=== PATIENT | male | born 1970 ===

== ENCOUNTER 2018-06-07 20:05 | Emergency (ER) | payer BC ==
[2018-06-07 20:15] VITALS: RESP 18
[2018-06-07] MEDS ORDERED: Alum-Mag Hydrox-Simethicone Susp (30 mL) PO ONE (20:26)
[2018-06-07] MEDS ORDERED: Alum-Mag Hydrox-Simethicone Susp (30 mL) ONE (20:58)
--- NOTE | 2018-06-07 21:18 | ED PDOC ---
HPI: Chest Pain Time Seen by Provider: 06/07/18 20:16 Chief Complaint (Nursing): Chest Pain History Per: Patient History/Exam Limitations: no limitations Onset/Duration Of Symptoms: Hrs Current Symptoms Are (Timing): Intermittent Episodes Additional Complaint(s): 48 year old smoker with no PMHx presenting with chest pain. States it started while he was driving around 1PM, states it left sided, pinching, and associated with shortness of breath. He states that he had gastric bypass years ago and as a result gets acid reflux so he thought it might be related to that, but at home he became lightheaded and checked his BP and it was high so he decided to come to the ER. Currently he states the pain is subsiding but he feels as though he's breathing heavily. Pain is nonradiating. PMD: No PMD Past Medical History Reviewed: Historical Data, Nursing Documentation, Vital Signs Vital Signs: Last Vital Signs Temp 98.3 F 06/07/18 20:12 Pulse 79 06/07/18 20:12 Resp 18 06/07/18 20:12 BP 150/89 06/07/18 20:12 Pulse Ox 95 06/07/18 20:12 - Medical History PMH: No Chronic Diseases - Surgical History Other surgeries: Gastric Bypass - Family History Family History: States: Unknown Family Hx - Allergies Allergies/Adverse Reactions: Allergies Allergy/AdvReac Type Severity Reaction Status Date / Time tomato Allergy RASH Verified 06/07/18 20:12 GRAHAM Risk Score for UA/NSTEMI - GRAHAM Risk Score Age > 64: NO 3 or more CAD Risk Factors: NO Known CAD (Stenosis greater than 50%): NO Aspirin use in past 7 days: NO Severe Angina: NO EKG ST changes greater than 0.5mm: NO Positive Cardiac Marker: NO GRAHAM Score: 0 Risk %: 5% Curb-65 Severity Score - CURB-65 Severity Score Confusion: No Bun >19mg/dl (>7mmol/L): No Respiratory Rate greater than/equal to 30: No Systolic BP <90 or Diastolic BP less than/equal 60mmHg: No Age >64: No Curb-65 Score: 0 Percentage 30-day mortality: 0.6% Wells Criteria for PE - Wells Criteria for Pulmonary Embolism Clinical Signs and Symptoms of DVT: No P.E is #1 Diagnosis, or Equally Likely: No Heart Rate >100: No Immobilization at least 3 days;Surgery previous 4 weeks: No Previous, objectively diagnosed PE or DVT: No Hemoptysis: No Malignancy w/treatment within 6 months, or palliative: No Total Score: 0 Review of Systems ROS Statement: Except As Marked, All Systems Reviewed And Found Negative Cardiovascular: Positive for: Chest Pain Respiratory: Positive for: Shortness of Breath Physical Exam - Reviewed Nursing Documentation Reviewed: Yes Vital Signs Reviewed: Yes - Physical Exam Appears: Positive for: Well, Non-toxic, No Acute Distress Head Exam: Positive for: ATRAUMATIC, NORMAL INSPECTION, NORMOCEPHALIC Skin: Positive for: Normal Color, Warm, DRY Eye Exam: Positive for: EOMI, Normal appearance, PERRL ENT: Positive for: Normal ENT Inspection Neck: Positive for: Normal, Painless ROM Cardiovascular/Chest: Positive for: Regular Rate, Rhythm Respiratory: Positive for: CNT, Normal Breath Sounds Gastrointestinal/Abdominal: Positive for: Normal Exam, Soft Back: Positive for: Normal Inspection Extremity: Positive for: Normal ROM Neurological/Psych: Positive for: Awake, Alert, Normal Tone - Laboratory Results Result Diagrams: 06/07/18 21:05 06/07/18 21:05 - ECG ECG: Positive for: Interpreted By Me, Viewed By Me ECG Rhythm: Positive for: Normal QRS, Normal ST Segment, Sinus Rhythm Rate: 75 O2 Sat by Pulse Oximetry: 95 Medical Decision Making Medical Decision Making: A/P: No PMHx, smoker, presenting with chest pain --Comfortable appearance, normal vitals, EKG nonischemic --Story is atypical for cardiac chest pain, possibly GERD, musculoskeletal --Will get enzymes x 2, CXR and give GI cocktail 0010 --Patient is feeling better --Negative troponin x 2 --Well appearing upon discharge --[facility] referral given that patient has no PMD Disposition - Clinical Impression Clinical Impression: Atypical chest pain - Disposition Referrals: Rylee Luna [Outside] Disposition: Routine/Home Disposition Time: 00:10 Condition: GOOD Instructions: Chest Pain That Is Not Caused by the Heart (DC) Forms: [employer] (Khmer)
[2018-06-07 21:28] LABS: BASO # 0.1 K/uL (0.0-0.2); BASO % 1.2 % (0.0-2.0); EOS # 0.6 K/uL (0.0-0.7); EOS % 7.6 % (0.0-4.0); HEMOGLOBIN 15.5 g/dL (12.0-18.0); LYMPH # 1.8 K/uL (1.0-4.3); LYMPH % 24.6 % (20.0-40.0); MEAN CELL VOLUME 90.1 fl (80.0-94.0); MEAN CORPUSCULAR HEMOGLOBIN 30.4 pg (27.0-31.0); MEAN CORPUSCULAR HGB CONC 33.7 g/dL (33.0-37.0); MEAN PLATELET VOLUME 9.1 fl (7.2-11.7); MONO # 0.7 K/uL (0.0-0.8); MONO % 10.3 % (0.0-10.0); NEUT # 4.1 K/uL (1.8-7.0); NEUT % 56.3 % (50.0-75.0); NRBC % 0.1 % (0.0-0.0); RBC 5.09 Mil/uL (4.40-5.90); RED CELL DISTRIBUTION WIDTH 14.2 % (11.5-14.5); WHITE BLOOD COUNT 7.3 K/uL (4.8-10.8)
[2018-06-07 21:38] LABS: BLOOD UREA NITROGEN 13 mg/dl (9-20); CALCIUM 9.1 mg/dL (8.4-10.2); GFR NON-AFRICAN AMERICAN > 60
[2018-06-08 00:15] VITALS: BP 117/64; TEMP 98.1
[2018-06-08 04:29] VITALS: PULSE 75; O2SAT 95
--- NOTE | 2018-06-08 08:20 | RAD ---
Date of service: 06/07/2018 HISTORY: chest pain COMPARISON: No prior. TECHNIQUE: Chest PA and lateral FINDINGS: LUNGS: No active pulmonary disease. PLEURA: No significant pleural effusion identified. No pneumothorax apparent. CARDIOVASCULAR: No aortic atherosclerotic calcification present. Normal cardiac size. No pulmonary vascular congestion. OSSEOUS STRUCTURES: No significant abnormalities. VISUALIZED UPPER ABDOMEN: Normal. OTHER FINDINGS: None. IMPRESSION: No active disease.
--- NOTE | 2018-06-08 21:11 | CARD ---
APPROVED REPORT Date of service: 06/07/2018 EKG Measurement Heart [id number] <Conclusion> Normal sinus rhythm Left axis deviation Abnormal ECG
== END 2018-06-08 00:10 | disposition home or self-care (01) ==
LOC: H.ER 20:05
DX: R07.89 Other chest pain (principal); Z98.84 Bariatric surgery status